=== PATIENT | male | born 1995 | race Caucasian/White ===

== ENCOUNTER 2022-07-23 13:56 | Observation (INO) ==
[2022-07-23] MEDS ORDERED: ZOFRAN INJ 4 MG VIAL IVP PRN (15:08)
[2022-07-23] MEDS ORDERED: NS 1,000 ML IV 1,000 ML IV ONE ×3 (15:08→18:45)
[2022-07-23] MEDS ORDERED: ROCEPHIN 1 GRAM IV PREMIX 1 G/50 ML IV.SOLN. IV SCH (15:11)
[2022-07-23] MEDS ORDERED: ZOFRAN INJ 4 MG VIAL ONE (15:28)
[2022-07-23] MEDS ORDERED: SOLU-Cortef INJ ONE (15:28)
[2022-07-23] MEDS ORDERED: NS 1,000 ML IV 1,000 ML ONE (15:28)
--- NOTE | 2022-07-23 15:36 | RAD ---
HISTORYFEVER, COUGH,COLD,CONGESTIONSTUDYCHEST, 1 VIEWCOMPARISONNoneTECHNIQUEPA or AP view of the chestFINDINGSThe cardiac and mediastinal contours are within normal limits. The lungs are clear without focal consolidation or segmental collapse. No pleural effusion or pneumothorax.IMPRESSIONNo acute pulmonary process.Electronically signed by: Jerrod Alvares (Jul 23, 2022 15:35:30)
[2022-07-23 15:47] LABS: BASOPHILS % (AUTO) 0.2 % (0.2-1.0); EOSINOPHILS # (AUTO) 0.1 x10^3/uL (0.0-0.2); EOSINOPHILS % (AUTO) 0.8 % (0.9-2.9); HEMATOCRIT 52.7 % (42.0-54.0); HEMOGLOBIN 18.3 g/dL (13.5-18.0); LYMPHOCYTES # (AUTO) 1.4 X10^3/uL (1.3-2.9); LYMPHOCYTES % (AUTO) 12.1 % (21.0-51.0); MEAN CORPUSCULAR HEMOGLOBIN 29.5 pg (27.0-34.0); MEAN CORPUSCULAR HGB CONC 34.7 g/dL (33.0-35.0); MEAN PLATELET VOLUME 8.1 fL (7.4-11.0); MONOCYTES # (AUTO) 0.7 x10^3/uL (0.3-0.8); MONOCYTES % (AUTO) 6.3 % (0.0-13.0); NEUTROPHILS # (AUTO) 9.1 x10^3/uL (2.2-4.8); NEUTROPHILS % (AUTO) 80.6 % (42.0-75.0); RED BLOOD COUNT 6.21 X10^6/uL (4.7-6.0); RED CELL DISTRIBUTION WIDTH 13.5 % (11.6-16.5); WHITE BLOOD COUNT 11.3 X10^3/uL (3.6-10.0)
[2022-07-23] MEDS ORDERED: SOLU-Cortef INJ IVP SCH (16:00)
[2022-07-23 16:06] LABS: AMYLASE 42 Units/L (25-115); LIPASE 173 Units/L (73-393)
[2022-07-23 16:12] VITALS: BMI 27.1
[2022-07-23 16:13] LABS: ALANINE AMINOTRANSFERASE 52 Units/L (12-78); ALBUMIN 4.6 g/dL (3.4-5.0); ALKALINE PHOSPHATASE 90 Units/L (46-116); ASPARTATE AMINO TRANSFERASE 34 Units/L (15-37); BLOOD UREA NITROGEN 22 mg/dL (7-18); CALCIUM 9.6 mg/dL (8.5-10.1); CARBON DIOXIDE 25.3 mmol/L (21-32); CHLORIDE 94 mmol/L (98-107); COR NA(FOR HYPERGLY) 135 mmol/L (136-145); CREATININE 3.54 mg/dL (0.70-1.30); SODIUM 135 mmol/L (136-145); TOTAL PROTEIN 8.8 g/dL (6.4-8.2); eGFR NON BLACK RACES 22 (>60)
[2022-07-23] MEDS: ROCEPHIN VIAL 1 GRAM 1 G in NS 100 ML IV 100 ML IV SCH (16:16)
[2022-07-23] MEDS: PROTONIX INJ 40 MG VIAL IVP SCH (16:17)
[2022-07-23] MEDS ORDERED: NS 1,000 ML IV 1,000 ML IV SCH (17:00)
[2022-07-23] MEDS: NS 1,000 ML IV 1,000 ML IV SCH (19:51)
[2022-07-23] MEDS: MAGNESIUM SULFATE 1 GRAM/100 mL PREMIX 1 G/100 ML BAG IV PRN ×4 (20:18→23:54)
[2022-07-23] MEDS: ZOFRAN INJ 4 MG VIAL IVP PRN (21:45)
[2022-07-23 22:04] LABS: BILIRUBIN,URINE NEGATIVE (NEGATIVE); BLOOD/HEMOGLOBIN,URINE 2+ (NEGATIVE); GLUCOSE, URINE NEGATIVE (NEGATIVE); KETONES,URINE NEGATIVE (NEGATIVE); LEUKOCYTE ESTERASE ,URINE NEGATIVE (NEGATIVE); NITRITES,URINE NEGATIVE (NEGATIVE); PROTEIN,URINE 2+ (NEGATIVE); UROBILINOGEN,URINE NORMAL (NORMAL)
[2022-07-23 22:15] LABS: APPEARANCE,URINE SLIGHTLY HAZY (CLEAR); COLOR,URINE YELLOW (YELLOW)
[2022-07-23 22:20] LABS: BACTERIA,URINE TRACE /HPF (NEGATIVE); HYALINE CASTS, URINE MANY /LPF (NEGATIVE); SQUAMOUS EPITHELIAL CELL,UR FEW /HPF (NEGATIVE)
[2022-07-23] MEDS: TYLENOL 325 MG TAB PO PRN (22:43)
[2022-07-23] MEDS: SOLU-Cortef INJ IVP SCH (23:54)
[2022-07-24] MEDS: NS 1,000 ML IV 1,000 ML IV SCH ×3 (02:13→16:00)
[2022-07-24] MEDS: SOLU-Cortef INJ IVP SCH ×2 (05:23→14:14)
[2022-07-24 07:14] LABS: BASOPHILS % (AUTO) 0.1 % (0.2-1.0); HEMATOCRIT 41.4 % (42.0-54.0); HEMOGLOBIN 14.6 g/dL (13.5-18.0); LYMPHOCYTES # (AUTO) 0.5 X10^3/uL (1.3-2.9); LYMPHOCYTES % (AUTO) 6.1 % (21.0-51.0); MEAN CORPUSCULAR HEMOGLOBIN 29.6 pg (27.0-34.0); MEAN CORPUSCULAR HGB CONC 35.2 g/dL (33.0-35.0); MEAN CORPUSCULAR VOLUME 84.1 fL (80.0-100.0); MEAN PLATELET VOLUME 8.5 fL (7.4-11.0); MONOCYTES # (AUTO) 0.4 x10^3/uL (0.3-0.8); NEUTROPHILS # (AUTO) 7.9 x10^3/uL (2.2-4.8); NEUTROPHILS % (AUTO) 88.8 % (42.0-75.0); RED BLOOD COUNT 4.93 X10^6/uL (4.7-6.0); RED CELL DISTRIBUTION WIDTH 13.3 % (11.6-16.5); WHITE BLOOD COUNT 8.9 X10^3/uL (3.6-10.0)
[2022-07-24 07:17] LABS: ALBUMIN 3.3 g/dL (3.4-5.0); CALCIUM 8.3 mg/dL (8.5-10.1); CARBON DIOXIDE 23.5 mmol/L (21-32); COR CA(FOR HYPOALB) 8.9 mg/dL (8.5-10.1); CREATININE 1.88 mg/dL (0.70-1.30); TOTAL PROTEIN 6.8 g/dL (6.4-8.2)
[2022-07-24] MEDS: PROTONIX INJ 40 MG VIAL IVP SCH (08:33)
[2022-07-24] MEDS: SYNTHROID 50 mcg TAB PO SCH (08:33)
[2022-07-24] MEDS: ZOFRAN INJ 4 MG VIAL IVP PRN (08:33)
[2022-07-24] MEDS: FLORINEF PO SCH (08:34)
[2022-07-24] MEDS: ABILIFY PO SCH (08:34)
[2022-07-24] MEDS: LAMICTAL TAB 100 MG PO SCH (08:34)
[2022-07-24] MEDS: ROCEPHIN VIAL 1 GRAM 1 G in NS 100 ML IV 100 ML IV SCH (08:36)
[2022-07-24] MEDS ORDERED: SOLU-Cortef INJ IVP SCH (09:00)
[2022-07-24] MEDS ORDERED: BIAXIN TAB 500 MG PO ONE (10:21)
[2022-07-24] MEDS ORDERED: AMOXIL CAP 500 MG PO ONE (10:21)
[2022-07-24] MEDS: AMOXIL CAP 500 MG PO SCH ×2 (10:24→20:30)
[2022-07-24] MEDS: BIAXIN TAB 500 MG PO SCH ×2 (10:24→20:30)
[2022-07-24] MEDS: PROTONIX TAB 40 MG PO SCH ×2 (10:57→20:30)
[2022-07-24] MEDS ORDERED: SOLU-Cortef INJ ONE (14:00)
[2022-07-24] MEDS: TYLENOL 325 MG TAB PO PRN (14:14)
[2022-07-24] MEDS ORDERED: RESTORIL CAP 15 MG PO PRN (21:50)
[2022-07-24] MEDS ORDERED: RESTORIL CAP 15 MG PO ONE (22:11)
[2022-07-25] MEDS: NS 1,000 ML IV 1,000 ML IV SCH ×2 (00:19→05:29)
[2022-07-25] MEDS: TYLENOL 325 MG TAB PO PRN (04:28)
[2022-07-25 06:10] LABS: ALANINE AMINOTRANSFERASE 54 Units/L (12-78); ALBUMIN 2.8 g/dL (3.4-5.0); ALKALINE PHOSPHATASE 53 Units/L (46-116); ASPARTATE AMINO TRANSFERASE 60 Units/L (15-37); BLOOD UREA NITROGEN 9 mg/dL (7-18); CALCIUM 7.5 mg/dL (8.5-10.1); CARBON DIOXIDE 24.9 mmol/L (21-32); CHLORIDE 105 mmol/L (98-107); COR CA(FOR HYPOALB) 8.5 mg/dL (8.5-10.1); CREATININE 1.14 mg/dL (0.70-1.30); SODIUM 138 mmol/L (136-145); TOTAL PROTEIN 5.6 g/dL (6.4-8.2); eGFR NON BLACK RACES > 60 (>60)
[2022-07-25 06:12] LABS: BASOPHILS % (AUTO) 0.3 % (0.2-1.0); EOSINOPHILS # (AUTO) 0.1 x10^3/uL (0.0-0.2); EOSINOPHILS % (AUTO) 1.9 % (0.9-2.9); HEMATOCRIT 31.8 % (42.0-54.0); HEMOGLOBIN 11.4 g/dL (13.5-18.0); LYMPHOCYTES # (AUTO) 0.9 X10^3/uL (1.3-2.9); LYMPHOCYTES % (AUTO) 15.8 % (21.0-51.0); MEAN CORPUSCULAR VOLUME 83.4 fL (80.0-100.0); MEAN PLATELET VOLUME 8.1 fL (7.4-11.0); MONOCYTES # (AUTO) 0.3 x10^3/uL (0.3-0.8); MONOCYTES % (AUTO) 5.9 % (0.0-13.0); NEUTROPHILS # (AUTO) 4.3 x10^3/uL (2.2-4.8); NEUTROPHILS % (AUTO) 76.1 % (42.0-75.0); RED BLOOD COUNT 3.82 X10^6/uL (4.7-6.0); RED CELL DISTRIBUTION WIDTH 13.4 % (11.6-16.5); WHITE BLOOD COUNT 5.7 X10^3/uL (3.6-10.0)
[2022-07-25] MEDS ORDERED: POTASSIUM CHL 40 MEQ/NS 0.45% 500 ML IV PRN (06:21)
[2022-07-25] MEDS ORDERED: KLOR-CON PO PRN (06:21)
[2022-07-25] MEDS ORDERED: K-RIDER 10 MEQ/NS 100 ML 10 MEQ/100 ML BAG IV PRN (06:21)
[2022-07-25] MEDS ORDERED: POTASSIUM CHLORIDE LIQ 20 MEQ UDC PO PRN (06:21)
[2022-07-25] MEDS ORDERED: POTASSIUM CHL 60 MEQ/NS 0.45% 500 ML IV PRN (06:21)
[2022-07-25] MEDS ORDERED: K-DUR TAB 20 MEQ PO PRN (06:21)
[2022-07-25] MEDS ORDERED: MICRO K EXTEN CAP 10 MEQ PO PRN (06:21)
[2022-07-25 07:51] VITALS: BP 117/61
[2022-07-25] MEDS: ROCEPHIN VIAL 1 GRAM 1 G in NS 100 ML IV 100 ML IV SCH (09:14)
[2022-07-25] MEDS: AMOXIL CAP 500 MG PO SCH (09:16)
[2022-07-25] MEDS: FLORINEF PO SCH (09:16)
[2022-07-25] MEDS: ABILIFY PO SCH (09:17)
[2022-07-25] MEDS: BIAXIN TAB 500 MG PO SCH (09:17)
[2022-07-25] MEDS: PROTONIX TAB 40 MG PO SCH (09:17)
[2022-07-25] MEDS: LAMICTAL TAB 100 MG PO SCH (09:17)
[2022-07-25] MEDS: SYNTHROID 50 mcg TAB PO SCH (09:17)
[2022-07-25] MEDS: MAGNESIUM SULFATE 1 GRAM/100 mL PREMIX 1 G/100 ML BAG IV PRN (09:53)
== END 2022-07-25 11:20 | disposition home or self-care (01) ==
LOC: MED/SURG
PROVIDERS: ADMIT Internal Medicine; ATTEND Internal Medicine
DX: B96.81 Helicobacter pylori [H. pylori] as the cause of diseases classified elsewhere; I95.89 Other hypotension; N17.8 Other acute kidney failure; R42 Dizziness and giddiness; E87.1 Hypo-osmolality and hyponatremia; E03.8 Other specified hypothyroidism; R11.2 Nausea with vomiting, unspecified; E27.2 Addisonian crisis; R19.7 Diarrhea, unspecified; Z20.822 Contact with and (suspected) exposure to COVID-19; K52.89 Other specified noninfective gastroenteritis and colitis; K92.1 Melena; E86.0 Dehydration

== ENCOUNTER 2023-04-30 17:09 | Observation (INO) ==
[2023-04-30] MEDS ORDERED: PEPCID 20 MG VIAL IVP ONE (17:44)
[2023-04-30] MEDS ORDERED: PHENERGAN TAB 25 MG PO PRN (17:44)
--- NOTE | 2023-04-30 17:53 | DR.H&P ---
H&P - History & Physical for Day of: H&P Date: 04/30/23 - Chief Complaint Chief Complaint: abdominal pain, n/v/d - History of Present Illness History of Present Illness: PT IS 28 WM, DIRECT ADMIT FROM DR ALLEN OFFICE WITH INTRACTABLE EPIGASTRIC, RUQ PAIN WITH N/V/D ON AND OFF FOR SEVERAL WEEKS. PT HAS PMH OF DANYELLE'S AND REPORTS LOWER BP DUE TO NAUSEA AND VOMITING. PT HAS BEEN TRYING TO TAKE HOME MEDICATION REGIMEN. PT REPORT HE HAD HIS GB REMOVED ONE MONTH AGO AT [facility] AND SINCE THEN HE HAS CONTINUED WITH N/V/D AND FOOD INTOLERANCE. PT REPORTS EPIGASTRIC PAIN AND DEHYDRATION. PT DENIES FEVER OF FLU LIKE RESP SYMPTOMS. PT HAS BEEN ON PO PROTONIX AND PO ZOFRAN WITHOUT IMPROVEMENT. - Past Medical History Past Medical History: Anxiety, Depression, Hypothyroidism Additional Medical History: ADDISONS DISEASE - Past Surgical History Surgical History: Cholecystectomy, Other - Family History Family Medical History: Coronary Artery Disease, Hypertension - Social History Does patient currently use any type of tobacco product: No Have you used tobacco products in the last 12 months: No Type of Tobacco Use: None Does any household member use tobacco: No Alcohol Use: None Drug Use: None - Review of Systems Constitutional: Malaise Eyes: No Symptoms Reported ENT: No Symptoms Reported Respiratory: No Symptoms Reported Cardiovascular: No Symptoms Reported Gastrointestinal: Nausea, Vomiting, Abdominal Pain, Diarrhea Genitourinary: No Symptoms Reported Musculoskeletal: No Symptoms Reported Skin: No Symptoms Reported Neurological: Weakness Oriented: Normal Eyes: Normal Ear: Normal Nose: Injected Throat: Normal Respiratory: Clear Throughout Cardiovascular: Tachycardia. negative: Edema : Normal Auscultation: Bowel Sounds: Increased Tenderness: RUQ, Epigastric Skin: Decreased Turgur Musculoskeletal: Normal Psychiatric: Anxiety Mood Description: Anxious Affect: Anxious Speech Pattern: Clear, Appropriate - Assessment/Plan (1) Gastritis Status: Acute Plan: ADMIT, IV HYDRATION. VERIFY HOME MEDICATION. BP CONTROL, ADMISSION LABS INCLUDING STOOL STUDIES AND AMYLASE AND LIPASE. NPO AFTER MIDNIGHT, CONSULT DR GODDARD. PAIN CONTROL, BID PPI THERAPY (2) Hyponatremia Status: Acute (3) Chilton's disease Status: Acute (4) Acute dehydration Status: Acute - Allergies Allergies/Adverse Reactions: Allergies Allergy/AdvReac Type Severity Reaction Status Date / Time No Known Allergies Allergy Verified 07/23/22 15:32 - Medications Home Medications: Home Medications Medication Instructions Recorded Confirmed aripiprazole 5 mg tablet 5 mg PO QDAY 07/23/22 07/23/22 clonazepam 0.5 mg tablet 0.5 mg PO HS 07/23/22 07/23/22 ergocalciferol (vitamin D2) 1,250 1 cap PO QWEEK 07/23/22 07/23/22 mcg (50,000 unit) capsule fludrocortisone 0.1 mg tablet 0.1 mg PO QDAY 07/23/22 07/23/22 hydrocortisone 10 mg tablet 1 - 3 tab PO BID 07/23/22 07/23/22 lamotrigine 100 mg tablet 100 mg PO DAILY 07/23/22 07/23/22 levothyroxine 50 mcg tablet 50 mcg PO QDAY 07/23/22 07/23/22 Previous Rx's Medication Instructions Recorded amoxicillin 500 mg capsule 1,000 mg PO BID #40 caps 07/25/22 clarithromycin 500 mg tablet 500 mg PO BID #20 tabs 07/25/22 pantoprazole 40 mg tablet,delayed 40 mg PO BID #60 tabs 07/25/22 release promethazine 25 mg rectal 25 mg MN Q6HR PRN Nausea #1 packet 07/25/22 suppository promethazine 25 mg tablet 25 mg PO Q6H PRN Nausea #30 tabs 07/25/22 doxycycline hyclate 100 mg tablet 100 mg PO BID #20 tabs 10/20/22 ondansetron 8 mg disintegrating 8 mg PO Q8H PRN nausea and 10/20/22 tablet vomiting #12 tabs
[2023-04-30 17:57] LABS: BILIRUBIN,URINE NEGATIVE (NEGATIVE); BLOOD/HEMOGLOBIN,URINE NEGATIVE (NEGATIVE); GLUCOSE, URINE NEGATIVE (NEGATIVE); KETONES,URINE NEGATIVE (NEGATIVE); LEUKOCYTE ESTERASE ,URINE NEGATIVE (NEGATIVE); NITRITES,URINE NEGATIVE (NEGATIVE); PROTEIN,URINE NEGATIVE (NEGATIVE); UROBILINOGEN,URINE NORMAL (NORMAL)
[2023-04-30 17:58] LABS: APPEARANCE,URINE CLEAR (CLEAR); COLOR,URINE YELLOW (YELLOW)
[2023-04-30 18:11] LABS: BASOPHILS # (AUTO) 0.1 X10^3/uL (0.0-0.1); BASOPHILS % (AUTO) 0.9 % (0.2-1.0); EOSINOPHILS # (AUTO) 0.2 x10^3/uL (0.0-0.2); EOSINOPHILS % (AUTO) 2.8 % (0.9-2.9); HEMATOCRIT 40.3 % (42.0-54.0); HEMOGLOBIN 14.3 g/dL (13.5-18.0); LYMPHOCYTES # (AUTO) 2.4 X10^3/uL (1.3-2.9); LYMPHOCYTES % (AUTO) 44.9 % (21.0-51.0); MEAN CORPUSCULAR HEMOGLOBIN 29.2 pg (27.0-34.0); MEAN CORPUSCULAR HGB CONC 35.6 g/dL (33.0-35.0); MEAN CORPUSCULAR VOLUME 81.9 fL (80.0-100.0); MEAN PLATELET VOLUME 7.7 fL (7.4-11.0); MONOCYTES # (AUTO) 0.5 x10^3/uL (0.3-0.8); NEUTROPHILS # (AUTO) 2.2 x10^3/uL (2.2-4.8); NEUTROPHILS % (AUTO) 41.4 % (42.0-75.0); PLATELET COUNT 225 X10^3/uL (150.0-450.0); RED BLOOD COUNT 4.92 X10^6/uL (4.7-6.0); RED CELL DISTRIBUTION WIDTH 12.7 % (11.6-16.5); WHITE BLOOD COUNT 5.4 X10^3/uL (3.6-10.0)
[2023-04-30] MEDS ORDERED: CORTEF ONE (18:11)
[2023-04-30] MEDS: BENTYL CAP 10 MG PO SCH ×2 (18:20→21:00)
[2023-04-30] MEDS: PROTONIX INJ 40 MG VIAL IVP SCH ×2 (18:20→21:01)
[2023-04-30] MEDS: CORTEF PO SCH ×2 (18:20→21:12)
[2023-04-30] MEDS: NS 1,000 ML IV 1,000 ML IV SCH (18:20)
[2023-04-30 18:21] VITALS: BMI 27.5
[2023-04-30 18:23] LABS: ALANINE AMINOTRANSFERASE 75 Units/L (12-78); ALBUMIN 3.6 g/dL (3.4-5.0); ALKALINE PHOSPHATASE 60 Units/L (46-116); ASPARTATE AMINO TRANSFERASE 49 Units/L (15-37); BLOOD UREA NITROGEN 10 mg/dL (7-18); CALCIUM 8.4 mg/dL (8.5-10.1); CARBON DIOXIDE 32.4 mmol/L (21-32); CHLORIDE 101 mmol/L (98-107); CREATININE 0.96 mg/dL (0.70-1.30); GLUCOSE 93 mg/dL (65-99); MAGNESIUM 1.6 mg/dL (2.0-2.9); POTASSIUM 3.3 mmol/L (3.5-5.1); SODIUM 139 mmol/L (136-145); TOTAL PROTEIN 6.6 g/dL (6.4-8.2); eGFR NON BLACK RACES > 60 (>60)
[2023-04-30 18:24] LABS: AMYLASE 18 Units/L (25-115); LIPASE 107 Units/L (73-393)
[2023-04-30] MEDS ORDERED: CONSULT PHARMACY - POTASSIUM & MAGNESIUM XX SCH (19:00)
[2023-04-30] MEDS: CARAFATE ORAL SUSP PO SCH (21:00)
[2023-04-30] MEDS ORDERED: K-RIDER 10 MEQ/NS 100 ML 10 MEQ/100 ML BAG IV SCH (21:00)
[2023-04-30] MEDS: KLONOPIN TAB 0.5 MG PO SCH (21:01)
[2023-04-30] MEDS: MAG-OX TAB PO SCH ×2 (21:02→22:13)
[2023-04-30] MEDS: K-DUR TAB 20 MEQ PO SCH ×2 (21:02→22:13)
[2023-04-30] MEDS ORDERED: TYLENOL 325 MG TAB PO ONE (21:11)
[2023-05-01] MEDS ORDERED: MAGNESIUM SULFATE 1 GRAM/100 mL PREMIX 1 G/100 ML BAG IV SCH (01:00)
[2023-05-01] MEDS: NS 1,000 ML IV 1,000 ML IV SCH (02:06)
--- NOTE | 2023-05-01 05:04 | RAD ---
HISTORYintractable abdominal pain Relevant Clinical InformationSTUDYACUTE ABDOMEN SERIESCOMPARISONNone aFINDINGSThe trachea is midline. The cardiac silhouette is [unremarkable]. [The lungs are clear without focal mass or consolidation. There is no effusion or pneumothorax.] [The bony thorax is unremarkable].Flat plate and upright evaluation of the abdomen demonstrates a [normal bowel gas pattern]. There is a moderate amount of fecal material throughout the colon. Surgical clips right upper quadrant. There is no pneumoperitoneum. No pathological soft tissue mass or calcification can be observed. The bony structures are grossly intact.IMPRESSION1. [No acute cardiopulmonary disease.]2. [No evidence for acute abdominal pathology identified.]Electronically signed by: Torey Cunningham (May 01, 2023 05:02:08)
[2023-05-01] MEDS: CARAFATE ORAL SUSP PO SCH ×4 (05:31→21:17)
[2023-05-01 05:50] LABS: BASOPHILS % (AUTO) 0.6 % (0.2-1.0); EOSINOPHILS # (AUTO) 0.1 x10^3/uL (0.0-0.2); EOSINOPHILS % (AUTO) 1.8 % (0.9-2.9); HEMATOCRIT 37.2 % (42.0-54.0); HEMOGLOBIN 13.4 g/dL (13.5-18.0); LYMPHOCYTES # (AUTO) 1.9 X10^3/uL (1.3-2.9); LYMPHOCYTES % (AUTO) 36.9 % (21.0-51.0); MEAN CORPUSCULAR HEMOGLOBIN 29.5 pg (27.0-34.0); MEAN CORPUSCULAR HGB CONC 36.1 g/dL (33.0-35.0); MEAN CORPUSCULAR VOLUME 81.7 fL (80.0-100.0); MEAN PLATELET VOLUME 8.2 fL (7.4-11.0); MONOCYTES # (AUTO) 0.4 x10^3/uL (0.3-0.8); MONOCYTES % (AUTO) 6.9 % (0.0-13.0); NEUTROPHILS # (AUTO) 2.8 x10^3/uL (2.2-4.8); NEUTROPHILS % (AUTO) 53.8 % (42.0-75.0); PLATELET COUNT 223 X10^3/uL (150.0-450.0); RED BLOOD COUNT 4.56 X10^6/uL (4.7-6.0); RED CELL DISTRIBUTION WIDTH 12.8 % (11.6-16.5); WHITE BLOOD COUNT 5.2 X10^3/uL (3.6-10.0)
[2023-05-01 05:58] LABS: ALANINE AMINOTRANSFERASE 67 Units/L (12-78); ALBUMIN 3.2 g/dL (3.4-5.0); ALKALINE PHOSPHATASE 51 Units/L (46-116); ASPARTATE AMINO TRANSFERASE 42 Units/L (15-37); BLOOD UREA NITROGEN 8 mg/dL (7-18); CALCIUM 8.2 mg/dL (8.5-10.1); CARBON DIOXIDE 29.4 mmol/L (21-32); CHLORIDE 107 mmol/L (98-107); COR CA(FOR HYPOALB) 8.8 mg/dL (8.5-10.1); CREATININE 0.78 mg/dL (0.70-1.30); GLUCOSE 98 mg/dL (65-99); MAGNESIUM 1.9 mg/dL (2.0-2.9); POTASSIUM 4.2 mmol/L (3.5-5.1); SODIUM 142 mmol/L (136-145); eGFR NON BLACK RACES > 60 (>60)
[2023-05-01] MEDS ORDERED: CONSULT PHARMACY - POTASSIUM & MAGNESIUM XX SCH (07:00)
[2023-05-01] MEDS ORDERED: CORTEF ONE ×2 (08:17→20:48)
[2023-05-01] MEDS: NS IV SCH ×4 (08:38→17:25)
[2023-05-01] MEDS: MAGNESIUM SULFATE IV SCH ×4 (08:38→17:25)
[2023-05-01] MEDS: FLORINEF PO SCH (08:39)
[2023-05-01] MEDS: SYNTHROID 50 mcg TAB PO SCH (08:40)
[2023-05-01] MEDS: PROTONIX INJ 40 MG VIAL IVP SCH ×2 (08:40→21:17)
[2023-05-01] MEDS: BENTYL CAP 10 MG PO SCH ×4 (08:40→21:17)
[2023-05-01] MEDS: CORTEF PO SCH ×2 (08:40→21:18)
[2023-05-01] MEDS ORDERED: MAG-OX TAB PO SCH (09:00)
[2023-05-01] MEDS ORDERED: D5 LR 1,000 ML 1,000 ML IV ONE (11:28)
[2023-05-01] MEDS ORDERED: DIPRIVAN VIAL 20 ML ONE (11:46)
--- NOTE | 2023-05-01 17:10 | PCM.PROG ---
Progress Note - Progress Note for Day of Date of Exam: 05/01/23 - Subjective Subjective: PT IS 28 WM, DIRECT ADMIT WITH GASTRITIS AND RUQ PAIN WITH HX OF LAP MICHELLE IN FEBRUARY. PT HAS BEEN ON IV HYDRATION AND POTASSIUM REPLACEMENT THERAPY WITH K AT 4.2 THIS AM. PT IS NPO FOR GI CONSULT AND EGD. PT IS CONTINUED ON IV PROTONIX BID. WE WILL RESUME ADDISIONS CORTISONE PRESCRIBED. - Past Medical Family Social History Past Med/Fam/Surg Hx: No changes since H&P Allergies: Allergies No Known Allergies Allergy (Verified 07/23/22 15:32) - Review of Systems ROS: No change since H&P - Vital Signs and I&O's Vital Signs: Vital Signs Temperature 97.6 F Temperature 97.9 F Pulse Rate [Left Brachial] 62 Pulse Rate [Left Brachial] 64 Respiratory Rate 20 Respiratory Rate 18 Blood Pressure [Left Arm] 110/54 Blood Pressure [Left Arm] 95/54 O2 Sat by Pulse Oximetry 96 O2 Sat by Pulse Oximetry 97 Intake and Output: Intake & Output 04/29/23 04/30/23 05/01/23 05/02/23 11:59 11:59 11:59 11:59 Intake Total 1372 / 1372 1302 / 1302 Output Total 400 / 400 Balance 972 / 972 1302 / 1302 - Physical Exam Oriented: Normal Eyes: Normal Ear: Normal Nose: Injected Throat: Normal Cardiovascular: Tachycardia. negative: Edema : Normal Auscultation: Bowel Sounds: Increased Tenderness: RUQ, Epigastric Skin: Decreased Turgur Musculoskeletal: Normal Psychiatric: Anxiety Mood Description: Anxious Affect: Anxious Speech Pattern: Clear - Laboratory and Diagnostics Result Diagrams: 05/01/23 05:28 05/01/23 05:28 Labs: Laboratory WBC 5.2 X10^3/uL (3.6-10.0) 05/01/23 05:28 RBC 4.56 X10^6/uL (4.7-6.0) L 05/01/23 05:28 Hgb 13.4 g/dL (13.5-18.0) L 05/01/23 05:28 Hct 37.2 % (42.0-54.0) L 05/01/23 05:28 MCV 81.7 fL (80.0-100.0) 05/01/23 05:28 MCH 29.5 pg (27.0-34.0) 05/01/23 05:28 MCHC 36.1 g/dL (33.0-35.0) H 05/01/23 05:28 RDW 12.8 % (11.6-16.5) 05/01/23 05:28 Plt Count 223 X10^3/uL (150.0-450.0) 05/01/23 05:28 MPV 8.2 fL (7.4-11.0) 05/01/23 05:28 Neut % (Auto) 53.8 % (42.0-75.0) 05/01/23 05:28 Lymph % (Auto) 36.9 % (21.0-51.0) 05/01/23 05:28 [place] % (Auto) 6.9 % (0.0-13.0) 05/01/23 05:28 Eos % (Auto) 1.8 % (0.9-2.9) 05/01/23 05:28 Baso % (Auto) 0.6 % (0.2-1.0) 05/01/23 05:28 Neut # (Auto) 2.8 x10^3/uL (2.2-4.8) 05/01/23 05:28 Lymph # (Auto) 1.9 X10^3/uL (1.3-2.9) 05/01/23 05:28 [place] # (Auto) 0.4 x10^3/uL (0.3-0.8) 05/01/23 05:28 Eos # (Auto) 0.1 x10^3/uL (0.0-0.2) 05/01/23 05:28 Baso # (Auto) 0.0 X10^3/uL (0.0-0.1) 05/01/23 05:28 Absolute Nucleated RBC 0.1 /100WBC 05/01/23 05:28 Sodium 142 mmol/L (136-145) 05/01/23 05:28 Corrected Sodium TNP 05/01/23 05:28 Potassium 4.2 mmol/L (3.5-5.1) 05/01/23 05:28 Chloride 107 mmol/L (98-107) 05/01/23 05:28 Carbon Dioxide 29.4 mmol/L (21-32) 05/01/23 05:28 BUN 8 mg/dL (7-18) 05/01/23 05:28 Creatinine 0.78 mg/dL (0.70-1.30) 05/01/23 05:28 Est GFR (MDRD) Af Amer > 60 (>60) 05/01/23 05:28 Est GFR (MDRD) Non-Af > 60 (>60) 05/01/23 05:28 Glucose 98 mg/dL (65-99) 05/01/23 05:28 Calcium 8.2 mg/dL (8.5-10.1) L 05/01/23 05:28 Corrected Calcium 8.8 mg/dL (8.5-10.1) 05/01/23 05:28 Magnesium 1.9 mg/dL (2.0-2.9) L 05/01/23 05:28 Total Bilirubin 0.60 mg/dL (0.2-1.0) 05/01/23 05:28 AST 42 Units/L (15-37) H 05/01/23 05:28 ALT 67 Units/L (12-78) 05/01/23 05:28 Alkaline Phosphatase 51 Units/L (46-116) 05/01/23 05:28 Total Protein 6.0 g/dL (6.4-8.2) L 05/01/23 05:28 Albumin 3.2 g/dL (3.4-5.0) L 05/01/23 05:28 Globulin 2.8 g/dL (2.5-4.5) 05/01/23 05:28 Albumin/Globulin Ratio 1.1 Ratio (1.1-2.1) 05/01/23 05:28 Amylase 18 Units/L (25-115) L 04/30/23 18:00 Lipase 107 Units/L (73-393) 04/30/23 18:00 Specimen Type Clean catch urine 04/30/23 17:40 Urine Color Yellow (YELLOW) 04/30/23 17:40 Urine Appearance Clear (CLEAR) 04/30/23 17:40 Urine pH 7.0 (5.0 - 8.0) 04/30/23 17:40 Ur Specific [place] 1.015 (1.000-1.030) 04/30/23 17:40 Urine Protein Negative (NEGATIVE) 04/30/23 17:40 Urine Glucose (UA) Negative (NEGATIVE) 04/30/23 17:40 Urine Ketones Negative (NEGATIVE) 04/30/23 17:40 Urine Blood Negative (NEGATIVE) 04/30/23 17:40 Urine Nitrite Negative (NEGATIVE) 04/30/23 17:40 Urine Bilirubin Negative (NEGATIVE) 04/30/23 17:40 Urine Urobilinogen Normal (NORMAL) 04/30/23 17:40 Ur Leukocyte Esterase Negative (NEGATIVE) 04/30/23 17:40 - Plan (1) Gastritis Status: Acute Plan: ADMIT, IV HYDRATION. VERIFY HOME MEDICATION. BP CONTROL, ADMISSION LABS INCLUDING STOOL STUDIES AND AMYLASE AND LIPASE. NPO AFTER MIDNIGHT, CONSULT DR GODDARD. PAIN CONTROL, BID PPI THERAPY (2) Hyponatremia Status: Acute (3) Douglas's disease Status: Acute (4) Acute dehydration Status: Acute
[2023-05-01 18:28] LABS: IRON 86 ug/dL (50-175)
[2023-05-01] MEDS: KLONOPIN TAB 0.5 MG PO SCH (21:17)
[2023-05-02] MEDS: MAGNESIUM SULFATE IV SCH ×4 (03:02→10:01)
[2023-05-02] MEDS: NS IV SCH ×4 (03:02→10:01)
[2023-05-02 05:19] LABS: BASOPHILS % (AUTO) 0.3 % (0.2-1.0); EOSINOPHILS % (AUTO) 0.8 % (0.9-2.9); HEMATOCRIT 35.2 % (42.0-54.0); HEMOGLOBIN 12.8 g/dL (13.5-18.0); LYMPHOCYTES # (AUTO) 1.7 X10^3/uL (1.3-2.9); LYMPHOCYTES % (AUTO) 29.4 % (21.0-51.0); MEAN CORPUSCULAR HEMOGLOBIN 29.8 pg (27.0-34.0); MEAN CORPUSCULAR HGB CONC 36.4 g/dL (33.0-35.0); MEAN PLATELET VOLUME 8.2 fL (7.4-11.0); MONOCYTES # (AUTO) 0.3 x10^3/uL (0.3-0.8); MONOCYTES % (AUTO) 4.8 % (0.0-13.0); NEUTROPHILS # (AUTO) 3.8 x10^3/uL (2.2-4.8); NEUTROPHILS % (AUTO) 64.7 % (42.0-75.0); PLATELET COUNT 202 X10^3/uL (150.0-450.0); RED CELL DISTRIBUTION WIDTH 12.7 % (11.6-16.5); WHITE BLOOD COUNT 5.9 X10^3/uL (3.6-10.0)
[2023-05-02 05:31] LABS: ALANINE AMINOTRANSFERASE 65 Units/L (12-78); ALBUMIN 3.2 g/dL (3.4-5.0); ALKALINE PHOSPHATASE 51 Units/L (46-116); ASPARTATE AMINO TRANSFERASE 36 Units/L (15-37); BLOOD UREA NITROGEN 8 mg/dL (7-18); CALCIUM 8.2 mg/dL (8.5-10.1); CARBON DIOXIDE 29.8 mmol/L (21-32); CHLORIDE 107 mmol/L (98-107); COR CA(FOR HYPOALB) 8.8 mg/dL (8.5-10.1); CREATININE 0.69 mg/dL (0.70-1.30); GLUCOSE 103 mg/dL (65-99); MAGNESIUM 2.2 mg/dL (2.0-2.9); SODIUM 142 mmol/L (136-145); eGFR NON BLACK RACES > 60 (>60)
[2023-05-02] MEDS: CARAFATE ORAL SUSP PO SCH ×3 (05:33→11:57)
--- NOTE | 2023-05-02 06:13 | US ---
EXAM:LIVERHISTORY:Abnormal liver function tests, right upper quadrant pain, status post cholecystectomyTECHNIQUE:Multiple grayscale sonographic images were obtained.COMPARISON:CT abdomen pelvis 02/27/2023FINDINGS:The liver is normal in size and configuration and increased in echogenicity suggestive of fatty infiltration. No cyst, mass, or biliary ductal dilatation is identified. Portal blood flow was hepatopetal. Hepatic venous blood flow hepatic portal, and hepatic artery was patent. Patient is status post cholecystectomy. Common duct measures 3.3 mm. Right kidney was unobstructed.IMPRESSION:Diffuse fatty infiltration of the liverTHIS IS AN ELECTRONICALLY VERIFIED FINAL [id number]/02/2023 6:10 AM - Electronically signed by Delmar Collier MD
[2023-05-02 08:16] VITALS: O2SAT 96
[2023-05-02] MEDS ORDERED: CORTEF ONE (08:26)
[2023-05-02] MEDS ORDERED: NS 100 ML IV 100 ML ONE (08:58)
[2023-05-02] MEDS ORDERED: OMNIPAQUE 350 mg/mL 100 mL BTL 100 ML ONE (08:58)
[2023-05-02] MEDS ORDERED: TYLENOL 325 MG TAB PO PRN (09:21)
[2023-05-02] MEDS: SYNTHROID 50 mcg TAB PO SCH (09:38)
[2023-05-02] MEDS: PROTONIX INJ 40 MG VIAL IVP SCH (09:38)
[2023-05-02] MEDS: BENTYL CAP 10 MG PO SCH (09:38)
[2023-05-02] MEDS: FLORINEF PO SCH (09:39)
[2023-05-02] MEDS: CORTEF PO SCH (09:39)
--- NOTE | 2023-05-02 09:51 | CT ---
EXAM:ABDCMEN/PELVIS WITH CONHISTORY:ABNORMAL LFT'S, S/P LAP MICHELLE, ABD PAIN ;COMPARISON:None available.TECHNIQUE:Multiple axial images of the abdomen and pelvis were obtained with 100 mL Omnipaque 350 IV contrast. Oral contrast was not administered. Dose reduction techniques including Automated Exposure Control (AEC) and adjustment of mA and kV were utilized.FINDINGS:Lung bases are unremarkable. No free air. 3 mm nodule on image 1 in the right lower lung, presumably benign in this younger patient assuming no malignancy history.Small fat containing umbilical hernia. Prior cholecystectomy. No evidence for common bile duct dilatation. No evidence for pancreatitis. No focal collection.Liver, spleen, adrenal glands, kidneys appear normal. 2 mm nonobstructing right renal calculus. No hydronephrosis. No ureteral calculi.Abdominal aorta not aneurysmal. No adenopathy.Prostate nonenlarged. Bladder unremarkable. No pelvic free fluid.Nonobstructive bowel. Mild colonic stool. Normal appendix. No bowel inflammatory features.Bones show no lytic or destructive process. Suggestion of femoroacetabular impingement with buttressing of the femoral head neck junction and tiny right-sided os acetabulum.IMPRESSION:1. No acute findings in the abdomen or pelvis. Prior cholecystectomy. No focal collection. No evidence for common bile duct dilatation, pancreas unremarkable. Additional as above with 2 mm nonobstructing right renal calculus.THIS IS AN ELECTRONICALLY VERIFIED FINAL [id number]/02/2023 9:47 AM - Electronically signed by Lukas Mckenna MD
[2023-05-02 10:58] VITALS: RESP 18
--- NOTE | 2023-05-02 11:23 | DR.CONSULT ---
Consult - Consultation for Day of: Date: 05/01/23 - Chief Complaint Chief Complaint: Patient is referred for EGD, for following complaints. Patient underwent cholecystectomy one month ago, and has been having abdominal pain since then. PT IS 28 WM, DIRECT ADMIT FROM DR ALLEN OFFICE WITH INTRACTABLE EPIGASTRIC, RUQ PAIN WITH N/V/D ON AND OFF FOR SEVERAL WEEKS. PT HAS PMH OF DANYELLE'S AND REPORTS LOWER BP DUE TO NAUSEA AND VOMITING. PT HAS BEEN TRYING TO TAKE HOME MEDICATION REGIMEN. PT REPORT HE HAD HIS GB REMOVED ONE MONTH AGO AT [facility] AND SINCE THEN HE HAS CONTINUED WITH N/V/D AND FOOD INTOLERANCE. PT REPORTS EPIGASTRIC PAIN AND DEHYDRATION. PT DENIES FEVER OF FLU LIKE RESP SYMPTOMS. PT HAS BEEN ON PO PROTONIX AND PO ZOFRAN WITHOUT IMPROVEMENT. - Past Medical History Past Medical History: Anxiety, Depression, Hypothyroidism Additional Medical History: ADDISONS DISEASE - Past Surgical History Surgical History: Cholecystectomy, Other - Family History Family Medical History: Coronary Artery Disease, Hypertension - Social History Does patient currently use any type of tobacco product: No Have you used tobacco products in the last 12 months: No Type of Tobacco Use: None Does any household member use tobacco: No Alcohol Use: None Drug Use: None - Medications Home Medications: No Known Allergies Allergy (Verified 07/23/22 15:32) - Review of Systems Constitutional: No Symptoms Reported. denies: See HPI, Fever, Chills, Sweats, Weakness, Malaise, Other Eyes: No Symptoms Reported. denies: See HPI, Pain, Vision Change, Conjunctivae Inflammation, Eyelid Inflammation, Redness, Other ENT: No Symptoms Reported. denies: See HPI, Ear Pain, Ear Discharge, Nose Pain, Nose Discharge, Nose Congestion, Mouth Pain, Mouth Swelling, Throat Pain, Throat Swelling, Other Respiratory: No Symptoms Reported. denies: See HPI, Cough, Dry, Shortness of Breath, Hemoptysis, SOB with Excertion, Pleuritic Pain, Sputum, Wheezing, Other Cardiovascular: No Symptoms Reported. denies: Chest Pain, See HPI, Palpitations, Orthopnea, Paroxysmal Noc. Dyspnea, Edema, Light Headedness, Other Gastrointestinal: Nausea, Vomiting, Abdominal Pain. denies: No Symptoms Report ed, See HPI, Diarrhea, Constipation, Melena, Hematochezia, Other Genitourinary: No Symptoms Reported. denies: See HPI, Dysuria, Frequency, Incontinence, Hematuria, Retention, Other Musculoskeletal: No Symptoms Reported. denies: See HPI, Shoulder Pain, Arm Pain, Back Pain, Hand Pain, Leg Pain, Foot Pain, Neck Pain, Other Skin: No Symptoms Reported. denies: See HPI, Rash, Lesions, Jaundice, Bruising, Wound, Ecchymosis, Other Neurological: No Symptoms Reported. denies: See HPI, Weakness, Numbness, Incoordination, Change in Speech, Confusion, Seizures, Other - Physical Exam Vital Signs: Vital Signs Temperature 97.6 F Temperature 97.9 F Pulse Rate [Left Brachial] 62 Pulse Rate [Left Brachial] 64 Respiratory Rate 20 Respiratory Rate 18 Blood Pressure [Left Arm] 110/54 Blood Pressure [Left Arm] 95/54 O2 Sat by Pulse Oximetry 96 O2 Sat by Pulse Oximetry 97 Oriented: Normal. negative: Time, Person, Place, Not Oriented, Unable to test, Other Eyes: negative: Normal, Blurred Vision, Diplopia, Discharge, Pain, Redness, Photophobia, Other Ear: negative: Normal, Right, Left, Swelling, Ecchymosis, Hemotypanum, Abrasion, Laceration Nose: negative: Normal, Injected, Discharge, Blood, Other Throat: negative: Normal, Tonsillar Hypertrophy, Red, Exudate, Dry, Other Respiratory: Clear Throughout. negative: Diminished Throughout, Rhonchi Throughout, Rales Throughout, Wheezes Throughout, RUL Clear, RML Clear, RLL Clear, VILMA Clear, LML Clear, LLL Clear, RUL Diminished, RML Diminished, RLL Diminished, VILMA Diminished, LML Diminished, LLL Diminished, RUL Absent, RML Absent, RLL Absent, VILMA Absent, LML Absent, LLL Absent, RUL Rhonchi, RML Rhonchi, RLL Rhonchi, VILMA Rhonchi, LML Rhonchi, LLL Rhonchi, RUL Insp. Wheeze, RML Insp. Wheeze, RLL Insp. Wheeze, VILMA Insp.Wheeze, LML Insp.Wheeze, LLL Insp.Wheeze, RUL Exp. Wheeze, RML Exp. Wheeze, RLL Exp. Wheeze, VILMA Exp. Wheeze, LML Exp. Wheeze, LLL Exp. Wheeze, RUL Rales, RML Rales, RLL Rales, VILMA Rales, LML Rales, LLL Rales, RUL Rub, RML Rub, RLL Rub, VILMA Rub, LML Rub, LLL Rub, RUL Squeak, RML Squeak, RLL Squeak, VILMA Squeak, LML Squeak, LLL Squeak Cardiovascular: Normal. negative: Tachycardia, Bradycardia, Irregular, S3, S4, Systolic, Diastolic, Murmur, Edema, Other : negative: Normal, Dysuria, Hematuria, Frequency, Discharge, Testicular Pain, Bleeding, , Other Auscultation: Bowel Sounds: Normal. negative: Bruit, Absent, Increased, Decreased, High Pitched, Other Palpation: negative: Normal, Spleen Enlarged, Liver Enlarged, Mass Pulsatile, Other Tenderness: RUQ, Epigastric, Periumbilical. negative: Normal, Diffuse, RLQ, LUQ, LLQ, Suprapubic, Mild, Moderate, Severe, Rebound, Guarding, Rigidity, Other Skin: Normal. negative: Decreased Turgur, Rash, Papular, Macular, Maculopapular, Vesicular, Pustular, Petechial, Red, Tender, Hot, Diaphoresis, Wound, Bruising, Ecchymosis, Other Musculoskeletal: Normal. negative: Right, Left, Shoulder, Clavicle, Arm, Elbow, Forearm, Wrist, Hand, Hip, Thigh, Knee, Leg, Ankle, Foot, Back:Thoracic, Back:Lumbar, Back:Midline, Back:Paraspinous, Pelvis, Swelling, Tender, Deformity, Pulse Deficit, Motor Deficit, Sensory Deficit, Instability, Crepitance Psychiatric: Normal. negative: Anxiety, Depression, Agitation, Other Mood Description: Calm. negative: Angry, Apathetic, Depressed, Fearful, Flat, Happy, Hostile, Sad, Suspicious, Withdrawn, Anxious, Appropriate, Labile Affect: Normal. negative: Angry, Anxious, Depressed, Flat, Hysterical, Quiet, Violent Speech Pattern: Clear, Appropriate. negative: Unclear, Inappropriate, Delayed, Slurred, Excessive, Aphasic, Artificially Ventilated, Trach(not ventilated) - Plan Plan: Assessment. 1. RUQ and epigstric abdominal pain, nausea, vomiting, R/O PUD, erosive esophagitis. 2. Abnormal LFTs, R/O CBD leak or other complications. Plan: EGD today. CT abdomen and pelvis with contrast. - Allergies Allergies/Adverse Reactions: Allergies Allergy/AdvReac Type Severity Reaction Status Date / Time No Known Allergies Allergy Verified 07/23/22 15:32
[2023-05-02 11:50] VITALS: BP 93/57; PULSE 62; TEMP 97
[2023-05-04 14:47] LABS: HEPATITIS B SURFACE ANTIGEN Negative (Negative)
[2023-05-07 06:20] LABS: ANTI-NUCLEAR ANTIBODY TEST Detected (None Detected)
== END 2023-05-02 12:46 | disposition home or self-care (01) ==
LOC: MED/SURG
PROVIDERS: ADMIT Internal Medicine; ATTEND Internal Medicine
DX: R94.5 Abnormal results of liver function studies; E03.8 Other specified hypothyroidism; E87.1 Hypo-osmolality and hyponatremia; R11.2 Nausea with vomiting, unspecified; R10.11 Right upper quadrant pain; E27.1 Primary adrenocortical insufficiency; R06.02 Shortness of breath; R10.13 Epigastric pain; K21.00 Gastro-esophageal reflux disease with esophagitis, without bleeding; I95.89 Other hypotension; K52.89 Other specified noninfective gastroenteritis and colitis; K29.00 Acute gastritis without bleeding; E86.0 Dehydration